=== PATIENT | male | born 1935 | race Caucasian/White ===

== ENCOUNTER 2017-05-12 16:39 | Inpatient (IN) | payer OTHER ==
[2017-05-12] MEDS: NORMAL SALINE 10 ML SYRINGE FLUSH IVP PRN ×2 (16:45→16:59)
[2017-05-12] MEDS ORDERED: FUROSEMIDE 10 MG/1 ML - 2 ML VIAL IVP ONE (16:48)
[2017-05-12 16:53] LABS: BASOPHILS # (AUTO) 0.07 10*3/UL; BASOPHILS % (AUTO) 0.9 % (0-1); EOSINOPHILS # (AUTO) 0.12 10*3/UL; EOSINOPHILS % (AUTO) 1.5 % (0-8); HEMATOCRIT 42.8 % (42.0-52.0); HEMOGLOBIN 14.8 g/dL (14.0-18.0); LYMPHOCYTES # (AUTO) 2.27 10*3/uL; MEAN CORPUSCULAR HEMOGLOBIN 30.2 PG (27-31); MEAN CORPUSCULAR HGB CONC 34.6 g/dL (33-37); MEAN CORPUSCULAR VOLUME 87.3 FL (80-90); MEAN PLATELET VOLUME 8.9 FL (7.4-12.2); MONOCYTES # (AUTO) 1.08 10*3/UL (0.3-0.8); MONOCYTES % (AUTO) 13.3 % (5-15); NEUTROPHILS # (AUTO) 4.41 10*3/UL; NEUTROPHILS % (AUTO) 53.9 % (50-80)
--- NOTE | 2017-05-12 16:57 | EKG ---
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
[2017-05-12 17:00] LABS: PLATELET MORPHOLOGY COMMENT NORMAL MORPHOLOGY (NORM); RBC MORPHOLOGY COMMENT NORMAL MORPHOLOGY (NORM); WBC MORPHOLOGY COMMENT NORMAL MORPHOLOGY (NORM)
[2017-05-12 17:05] LABS: BLOOD UREA NITROGEN 58 mg/dL (7-22); BUN/CREATININE RATIO 27.61 (6-20); CALCIUM 9.1 mg/dL (8.7-10.7); MAGNESIUM 2.1 mg/dL (1.6-2.4); SERUM ALBUMIN 3.7 g/dL (3.5-4.8)
[2017-05-12 17:14] LABS: C-REACTIVE PROTEIN < 0.5 mg/dL (0.0-0.9)
--- NOTE | 2017-05-12 18:24 | PDOC ---
History and Physical - History of Present Illness Date and Time of Service: 05/12/2017 Chief Complaint: Leg swelling and penile swelling of 2 weeks duration some shortness of breath on and off for a few weeks. History of Present Illness: This is a 82 years old male with medical history significant for history of coronary artery disease with previous 5 vessel bypass in 1998, hypertension, and admission in October 2015 for congestive heart failure with preserved ejection fraction who came into the hospital with history of leg and penile swelling which is being going on for about 2 months with on and off shortness of breath but no chest pain. He said the symptoms started about 2 months ago when he had joint pain and swelling in hands elbows and was admitted to [facility] it sounded like they drained the elbow, put him on some new medications looks like allopurinol and they took him off his Lasix. He did say that it was discovered that his kidney function was not normal and that he had a kidney biopsy with field checker in [place] and they told him things are borderline. About 10 days ago because of the swelling his called the field checker he suggested restarting the Lasix however she did not do that until Saturday when he took 40 mg dosage and he took another dosage yesterday and today since there was no change in his weight he took 40 twice a day. He was also taking prednisone it sounded like tapering dosage for his gout and was discontinued last . Today he noticed the penile swelling and some shortness of breath and because of that he came into the ER. In the ER he was found to have significant edema in addition to penile edema and was admitted. He was giving Lasix and the thought that he had congestive heart failure. Currently he is denying shortness of breath, denying chest pain. he Said he can 't lie flat but this been going on since he had a heart surgery. Past Medical History Medical History: 1. Coronary artery disease with previous 5 vessel bypass in 1998. He did say he had an CO that year. 2. Hypertension. 3. Congestive heart failure previous admission to or hospital in Oct 2015 ejection fraction was 65%, suggesting congestive heart failure with preserved ejection fraction. 4. Gout. 5. Had renal biopsy about March 2017 for abnormal kidney function, patholgy unkown Surgical History: Five-vessel bypass in 1998 Family History: Reviewed an Not Pertinent Past Social History: Used to Smoke, rarerly drinks, no drugs, lives in [place]. Tobacco Use: Former Smoker Substance Use Type: None Alcohol Use: Rarely Medication / Allergies Home Medications: Home Medications Medication Instructions Recorded Confirmed Type Acetaminophen [Tylenol Arthritis] 650 mg PO DAILY 05/12/17 05/12/17 History Amlodipine Besylate [Norvasc] 10 mg PO DAILY 05/12/17 05/12/17 History RX: Allopurinol 100 mg PO BID 05/12/17 05/12/17 History RX: Carvedilol 3.125 mg PO DAILY 05/12/17 05/12/17 History RX: Furosemide [Lasix] 80 mg PO BID 05/12/17 05/12/17 History RX: Levothyroxine Sodium 150 mcg PO DAILY 05/12/17 05/12/17 History RX: Pravastatin Sodium 40 mg PO DAILY 05/12/17 05/12/17 History RX: Prednisone 20 mg PO DAILY 05/12/17 05/12/17 History Allergies/Adverse Reactions: Allergies Allergy/AdvReac Type Severity Reaction Status Date / Time No Known Allergies Allergy Verified 05/12/17 16:44 Review of Systems - Review of Systems All Systems: Reviewed & No Additional Complaints Except as Stated Exam - General General Appearance: POSITIVE: No Acute Distress, Cooperative, Obese - Head Head Exam: POSITIVE: Normal Inspection - Eye Eye Exam: POSITIVE: Normal Appearance - ENT ENT Exam: POSITIVE: Normal Exam - Neck Neck Exam: POSITIVE: Normal Inspection - Respiratory Respiratory Exam: POSITIVE: Clear to Auscultation - Bilaterally - Cardiovascular Cardiovascular Exam: POSITIVE: RRR - GI/Abdominal GI/Abdominal Exam: POSITIVE: Normal Bowel Sounds, Non Tender, Non Distended, Soft, No Organomegaly - Rectal Rectal Exam: POSITIVE: Deferred - External Exam: POSITIVE: Deferred - Extremities Extremities Exam: POSITIVE: +3 Edema Additional Extremities Exam Details: 3+ edema up to the thighs. There is some penile edema noted also. - Back Back Exam: POSITIVE: Normal Inspection - Neurological Neurological Exam: POSITIVE: Alert, Oriented x 3, CN II-XII Intact, Moves All Extremities Equally - Psychiatric Psychiatric Exam: POSITIVE: Normal Affect - Integumentary Additional Integumentary Exam Details: there is a wound on the left ear, he had recent surgery. Results - Labs CBC and BMP: 05/12/17 16:50 05/12/17 16:50 - EKG Data -: EKG Interpreted by Me Rate: Normal EKG Shows Normal: Sinus Rhythm - EKG Data EKG Interpretation: Other (EKG showed sinus rhythm with first-degree AV block, right bundle branch block is Q waves in the inferior leads) - Imaging Status: Image Reviewed by Me (Chest x-ray showed the cardiomegaly with bilateral small pleural effusions, right larger than left.) Assessment and Plan - Patient Problems (1) Congestive cardiac failure Current Visit: No Status: Acute Comment: Last time he had an echo was October 2015 he had preserved ejection fraction. We'll recheck his echo tomorrow. The issue that we have now is whether the edema is secondary to congestive just heart failure or to renal failure. Prednisone also may contribute to the fluid retention plus he was off lasix for 2-3 weeks. He got Lasix already today I think we'll hold off on further Lasix will restart tomorrow will check his kidney function tomorrow. We 'll try to get records from [place] and see what's his last kidney function. If his kidney function tolerate we may consider Lasix drip. I did explain to him and to his family that its difficult situation as we may be limited with our abilty to diurse him if his kidney function get worse, if thats the case we need to speak with nephrolgy in [place] about options of treatment. (2) Chronic renal failure Current Visit: Yes Status: Acute Comment: Since he had a kidney biopsy he has abnormal kidney function but I don' t know what is his baseline will try to get records from his field checker and see where he stands and whats the pathology. (3) Hypertension Current Visit: No Status: Acute Comment: We'll increase the dosage of his Coreg to twice a day. We'll hold off on the amlodipine will use Lasix and Coreg, amlodipine may be also contributing to his edema. May add hydralazine if BP is uncontrolled (4) Elevated d-dimer Current Visit: Yes Status: Acute Comment: Unclear significance will put him on DVT prophylaxis we'll do also ultrasound of his legs although DVT seems to be unlikely. (5) Elevated troponin Current Visit: Yes Status: Acute Comment: This may be secondary to CHF and renal afilure he is denying chest pain and EKG is unchanged from before, will repeat it.
[2017-05-12] MEDS ORDERED: NORMAL SALINE 10 ML SYRINGE FLUSH IVP PRN (18:39)
[2017-05-12] MEDS ORDERED: LIDOCAINE W/ SODIUM BICARB 0.5 ML SYR SUBD PRN (18:39)
[2017-05-12] MEDS: CARVEDILOL 3.125 MG TABLET PO SCH (20:32)
[2017-05-12] MEDS: ALLOPURINOL 100 MG TABLET PO SCH (20:32)
[2017-05-12] MEDS: HEPARIN 5000 UNIT/1 ML SUBCUT SCH (20:32)
[2017-05-12] MEDS ORDERED: Pravastatin Tab 20 MG TAB PO SCH (21:00)
[2017-05-12] MEDS ORDERED: Petrolatum, White Jelly 5 APPLIC/5 GM PACKET TOPICAL PRN (22:27)
[2017-05-12 22:41] LABS: BILIRUBIN,URINE NEGATIVE (NEG); CLARITY,URINE CLEAR (CLEAR); COLOR,URINE YELLOW; GLUCOSE, URINE (UA) NEGATIVE (NEG); NITRATE,URINE NEGATIVE (NEG); OCCULT BLOOD,URINE Trace-lysed (NEG); PH,URINE 6.5 (5.0-8.5); PROTEIN,URINE >300 mg/dl (NEG)
[2017-05-12 23:22] LABS: BACTERIA,URINE RARE; URINE SAMPLE TYPE CLEAN CATCH URINE; WBC,URINE 0-1
--- NOTE | 2017-05-13 02:17 | PDOC ---
General Adult HPI - General Chief Complaint: Dyspnea Stated Complaint: SWELLING UP/ CAN'T BREATH Date Seen by Provider: 05/13/17 Time Seen by Provider: 16:57 Source: POSITIVE: Patient, Spouse Exam Limitations: POSITIVE: No limitations Nurse's Notes Reviewed & Considered: Yes - History of Present Illness Initial Comment: The patient is an 82-year-old male who presents to the emergency department with increased shortness of breath and swelling. He states that he has a history of coronary artery disease with previous bypass surgery in 1968. He also has had previous admissions to the hospital with congestive heart failure, the last time here was in 2016. He also reports that he was hospitalized for a gout flare at [facility] approximately a month ago. He states that last week he started to develop some increased swelling in his legs as well as an increased gout flare. He was seen at the [facility] and [place] on Saturday and started on Lasix in addition to his torsemide. He was also started on prednisone and allopurinol. He reports however that his swelling has continued to intensify. He has swelling of his legs all the way up into his upper legs. He also has swelling to his genitalia that started today. He has swelling even around his face and in his hands as well. He denies any complaints of chest pain. He does have increased shortness of breath and states that he cannot lay down flat. He denies fevers or chills, cough or congestion, chest pain or any other associated symptoms. He does report that he has had similar symptoms in the past. He also states that his kidney function has been an issue related to previous medications and he does see a weather teacher in [place]. Have you received a tetanus shot in the past 10 years?: Unknown - Patient Home Medications Home Medications: Home Medications Acetaminophen [Tylenol Arthritis] 650 mg PO DAILY 05/12/17 Allopurinol 100 mg PO BID 05/12/17 Amlodipine Besylate [Norvasc] 10 mg PO DAILY 05/12/17 Carvedilol 3.125 mg PO DAILY 05/12/17 Furosemide [Lasix] 80 mg PO BID 05/12/17 Levothyroxine Sodium 150 mcg PO DAILY 05/12/17 Pravastatin Sodium 40 mg PO DAILY 05/12/17 Prednisone 20 mg PO DAILY 05/12/17 - Patient Allergies Allergies/Adverse Reactions: Allergies Allergy/AdvReac Type Severity Reaction Status Date / Time No Known Allergies Allergy Verified 05/12/17 16:44 Past Medical History - heen HEENT History: Denies History Cardiovascular History: Hypertension, CAD Additional Cardiovasular History: Myocardial infarction in 1998 followed by 5 vessel coronary artery bypass graft Respiratory History: Shortness of Breath Gastrointestinal History: Denies History Genitourinary History: Denies History Endocrine History: Denies History Musculoskeletal History: Denies History Prosthesis or Implant: No Neurological History: Denies History Blood Disorders: Denies History Psychiatric History: Denies History History of Sexually Transmitted Diseases: No Cancer History: Denies History In Past Year Been Physically Harmed or Verbally Threatened: No History of MDRO: No History of Other Communicable Diseases: No History of Exposure to Communicable Disease: No Tobacco Use: Former Smoker Alcohol Use: None Substance Use Type: None Previous Surgical History: Yes Type / Date of Surgery: Coronary artery bypass surgery 1998; appendectomy; inguinal hernia repair Anesthesia Reactions: No Malignant Hyperthermia: No Significant Family History: No pertinent family hx Past Medical History Reviewed: Reviewed - No Changes ROS - Limitations ROS Limitations: No Limitations Constitution: DENIES: Chills, Fever Cardiovascular: REPORTS: Blood Pressure Problem (The patient does report that his blood pressure is typically high), Edema. DENIES: Chest Pain, Heart Palpitations Respiratory: REPORTS: Shortness Of Breath. DENIES: Cough Non Productive, Cough Productive Neurological: REPORTS: Denies Neuro Symptoms Gastrointestinal: REPORTS: Denies GI Symptoms Musculoskeletal: REPORTS: Lower Extremity Swelling Genitourinary: REPORTS: Denies Symptoms, Other (Genitalia are swollen today) . DENIES: Difficulty Urinating Eyes: REPORTS: Denies Symptoms ENT: REPORTS: Denies Symptoms Skin: DENIES: Rash General Adult Exam - General Appearance General Appearance: POSITIVE: Alert, Cooperative, No Acute Distress - HEENT HEENT: POSITIVE: Head Inspection Nml, Eyes Inspection Nml, Ears Inspection Nml, Pharynx Inspect. Nml - Neck Neck: POSITIVE: Normal Inspection. NEGATIVE: Lymphadenopathy - Respiratory Respiratory: POSITIVE: No Respiratory Distress, Other (Decreased breath sounds bilaterally) - Cardiovascular Cardiovascular: POSITIVE: Regular Rate & Rhythm, No Murmur Peripheral Pulses: Dorsalis-pedis (R): 2+, Dorsalis-pedis (L): 2+ - Abdomen Abdomen: Soft: (All Quadrants), Denies Tenderness: (All Quadrants), No Distention: (All Quadrants) - Skin Skin: POSITIVE: Normal Color, No Rash - Extremities Extremity: Normal ROM: (All Extremities) Additional Extremities Details: The patient does have marked edema in his lower extremities bilaterally, he also does have swelling to both hands, - Neurological / Psychological Neurological: POSITIVE: Oriented X3, Motor Normal, Sensation Normal, Other (No focal neurologic deficits) General Adult Progress - Results Reviewed by me Xrays/CTs/US Reviewed by me: Yes Radiology Findings: Chest x-ray shows cardiomegaly with right-sided pleural effusion Lab Results Reviewed: Yes Lab Results:: Laboratory Results 05/12/17 05/12/17 Range/Units 16:49 16:50 WBC 8.15 (4.8-10.8) 10^3/uL RBC 4.90 (4.70-6.10) 10^6/uL Hgb 14.8 (14.0-18.0) g/dL Hct 42.8 (42.0-52.0) % MCV 87.3 (80-90) FL MCH 30.2 (27-31) PG MCHC 34.6 (33-37) g/dL RDW Std Deviation 54.0 H (39-50) fL RDW Coeff of Claudio 17.4 H (11.5-14.5) % Plt Count 237 (140-350) 10*3/uL MPV 8.9 (7.4-12.2) FL Immature Gran % (Auto) 2.5 (0-5) % Neut % (Auto) 53.9 (50-80) % Lymph % (Auto) 27.9 (10-50) % [place] % (Auto) 13.3 (5-15) % Eos % (Auto) 1.5 (0-8) % Baso % (Auto) 0.9 (0-1) % Immature Gran # (Auto) 0.20 10*3/UL Neut # (Auto) 4.41 10*3/UL Lymph # (Auto) 2.27 10*3/uL [place] # (Auto) 1.08 H (0.3-0.8) 10*3/UL Eos # (Auto) 0.12 10*3/UL Baso # (Auto) 0.07 10*3/UL WBC Morphology Comment Normal morphology (NORM) Plt Morphology Comment Normal morphology (NORM) RBC Morph Comment Normal morphology (NORM) D-Dimer 1.61 H (0.00-0.59) mg/L Sodium 137 (135-145) meq/L Potassium 4.3 (3.8-5.2) meq/L Chloride 102 (98-112) meq/L Carbon Dioxide 24 (23-33) meq/L Anion Gap 11 (5-20) BUN 58 H (7-22) mg/dL Creatinine 2.1 H (0.70-1.50) mg/dL Estimated GFR [employer] BUN/Creatinine Ratio 27.61 H (6-20) Glucose 96 (78-110) mg/dL Calculated Osmolality 299.0 H (267-292) mOsm/kg Uric Acid 6.2 (3.8-8.5) mg/dl Calcium 9.1 (8.7-10.7) mg/dL Magnesium 2.1 (1.6-2.4) mg/dL Total Bilirubin 0.7 (0.3-1.2) mg/dL AST 27 (21-57) IU/L ALT 45 (21-72) IU/L Alkaline Phosphatase 101 (38-126) IU/L Troponin I 0.084 H (< 0.040) ng/mL C-Reactive Protein < 0.5 (0.0-0.9) mg/dL NT-Pro-B Natriuret Pep 4550 H (0-450) PG/ML Total Protein 6.8 (6.1-8.0) g/dL Albumin 3.7 (3.5-4.8) g/dL Globulin 3.1 (2.50-4.10) g/dL Albumin/Globulin Ratio 1.10 L (1.3-2.0) mg/g EKG Interpreted/Reviewed By Me:: Yes EKG Interpretation:: POSITIVE: Normal Sinus Rhythm, Normal Rate, Other (EKG shows right bundle branch block with PVCs, no acute ST segment or T-wave changes ) - Patient's Progress MDM / ED Course: The patient's oxygen saturation at rest remains above 90 however he is extremely symptomatic even with minimal activity in regard to increase shortness of breath. He also has marked edema on arrival. He has no complaints of chest pain. His initial EKG shows no acute changes. Chest x-ray shows cardiomegaly with previous surgical changes, right pleural effusion. Blood work reveals a markedly elevated BNP at 4500. His creatinine is 2.1 with a BUN of 54. These findings were discussed with the patient. I did recommend hospitalization and the patient is in agreement with this plan. The patient did receive Lasix 20 mg IV shortly after arrival here in the emergency department and he did have 200 mL of urine out here. - Consult Counseled: POSITIVE: Patient, Family, RE: Lab Results, RE: Radiology Results, RE : DX, RE: Need for F/U Patient Care Time - Estimated PCT Patient Care Time (In Minutes): 35 Vital Signs - Recent Vital Signs Vital Signs: Vital Signs (Last 8 hours) Temp Pulse Pulse Resp BP Pulse Ox 05/13/17 00:15 97.8 F 76 22 153/74 93 05/12/17 23:00 76 05/12/17 20:03 97.8 F 78 24 173/70 93 - VS Reviewed Vital Signs Reviewed: Yes Discharge Clinical Impression: Congestive cardiac failure, Hypertension, Pleural effusion due to congestive heart failure, Renal failure Discharge Disposition: Admit to Inpatient Condition: Fair Date Decision to Admit to Inpatient: 05/13/17 Time Decision to Admit to Inpatient: 18:30
[2017-05-13 05:19] LABS: HEMOGLOBIN A1C 6.82 % (4.2-6.0)
[2017-05-13 05:23] LABS: BLOOD UREA NITROGEN 57 mg/dL (7-22); CALCIUM 8.9 mg/dL (8.7-10.7)
[2017-05-13] MEDS ORDERED: LEVOTHYROXINE 75 MCG TABLET PO SCH (05:30)
[2017-05-13] MEDS ORDERED: FUROSEMIDE 10 MG/1 ML - 4 ML IVP SCH (07:00)
[2017-05-13] MEDS: ALLOPURINOL 100 MG TABLET PO SCH (09:34)
[2017-05-13] MEDS: HEPARIN 5000 UNIT/1 ML SUBCUT SCH (09:35)
[2017-05-13] MEDS: CARVEDILOL 3.125 MG TABLET PO SCH (09:37)
--- NOTE | 2017-05-13 11:38 | DCSUMMARY ---
Hospitalization Summary Hospital Course: Final Discharge Diagnosis: Current Visit Problems Problem Status Priority Diagnosed Code Chronic renal failure Acute N18.9 Congestive cardiac failure Acute I50.9 Elevated d-dimer Acute R79.89 Elevated troponin Acute R74.8 Hypertension Acute I10 Pleural effusion due to congestive heart failure Acute I50.9 Renal failure Acute N19 Diagnostic Data, Laboratory Data, and Procedures of Signifigance: Laboratory Results 05/12/17 05/12/17 05/12/17 Range/Units 16:49 16:50 22:20 WBC 8.15 (4.8-10.8) 10^3/uL RBC 4.90 (4.70-6.10) 10^6/uL Hgb 14.8 (14.0-18.0) g/dL Hct 42.8 (42.0-52.0) % MCV 87.3 (80-90) FL MCH 30.2 (27-31) PG MCHC 34.6 (33-37) g/dL RDW Std Deviation 54.0 H (39-50) fL RDW Coeff of Claudio 17.4 H (11.5-14.5) % Plt Count 237 (140-350) 10*3/uL MPV 8.9 (7.4-12.2) FL Immature Gran % (Auto) 2.5 (0-5) % Neut % (Auto) 53.9 (50-80) % Lymph % (Auto) 27.9 (10-50) % Stewart % (Auto) 13.3 (5-15) % Eos % (Auto) 1.5 (0-8) % Baso % (Auto) 0.9 (0-1) % Immature Gran # (Auto) 0.20 10*3/UL Neut # (Auto) 4.41 10*3/UL Lymph # (Auto) 2.27 10*3/uL Stewart # (Auto) 1.08 H (0.3-0.8) 10*3/UL Eos # (Auto) 0.12 10*3/UL Baso # (Auto) 0.07 10*3/UL WBC Morphology Comment Normal morphology (NORM) Plt Morphology Comment Normal morphology (NORM) RBC Morph Comment Normal morphology (NORM) D-Dimer 1.61 H (0.00-0.59) mg/L Sodium 137 (135-145) meq/L Potassium 4.3 (3.8-5.2) meq/L Chloride 102 (98-112) meq/L Carbon Dioxide 24 (23-33) meq/L Anion Gap 11 (5-20) BUN 58 H (7-22) mg/dL Creatinine 2.1 H (0.70-1.50) mg/dL Estimated GFR Cop Breaker BUN/Creatinine Ratio 27.61 H (6-20) Glucose 96 (78-110) mg/dL Mean Blood Glucose mg/dL Hemoglobin A1c (4.2-6.0) % Calculated Osmolality 299.0 H (267-292) mOsm/kg Uric Acid 6.2 (3.8-8.5) mg/dl Calcium 9.1 (8.7-10.7) mg/dL Magnesium 2.1 (1.6-2.4) mg/dL Total Bilirubin 0.7 (0.3-1.2) mg/dL AST 27 (21-57) IU/L ALT 45 (21-72) IU/L Alkaline Phosphatase 101 (38-126) IU/L Troponin I 0.084 H (< 0.040) ng/mL C-Reactive Protein < 0.5 (0.0-0.9) mg/dL NT-Pro-B Natriuret Pep 4550 H (0-450) PG/ML Total Protein 6.8 (6.1-8.0) g/dL Albumin 3.7 (3.5-4.8) g/dL Globulin 3.1 (2.50-4.10) g/dL Albumin/Globulin Ratio 1.10 L (1.3-2.0) mg/g Ur Collection Type Clean catch urine Urine Color Yellow Urine Clarity Clear (CLEAR) Urine pH 6.5 (5.0-8.5) Ur Specific [place] 1.020 (1.005-1.030) Urine Protein >300 (NEG) mg/dl Urine Glucose (UA) Negative (NEG) mg/dL Urine Ketones Negative (NEG) Urine Occult Blood Trace-lysed H (NEG) Urine Nitrate Negative (NEG) Urine Bilirubin Negative (NEG) Urine Urobilinogen 1.0 (0.2) EU/dL Ur Leukocyte Esterase Negative (NEG) Urine RBC 1-3 (NONE) /hpf Urine WBC 0-1 (NONE) Ur Squamous Epith Cells None (NONE) Ur Renal Epithelial Cell None (NONE) Urine Crystals None Urine Bacteria Rare (NONE) Urine Casts None (NONE) Urine Mucus Few (NONE) Urine Trichomonas None (NONE) Urine Yeast None (NONE) Ur Culture Indicated? Culture not set 05/13/17 Range/Units 04:15 WBC (4.8-10.8) 10^3/uL RBC (4.70-6.10) 10^6/uL Hgb (14.0-18.0) g/dL Hct (42.0-52.0) % MCV (80-90) FL MCH (27-31) PG MCHC (33-37) g/dL RDW Std Deviation (39-50) fL RDW Coeff of Claudio (11.5-14.5) % Plt Count (140-350) 10*3/uL MPV (7.4-12.2) FL Immature Gran % (Auto) (0-5) % Neut % (Auto) (50-80) % Lymph % (Auto) (10-50) % Stewart % (Auto) (5-15) % Eos % (Auto) (0-8) % Baso % (Auto) (0-1) % Immature Gran # (Auto) 10*3/UL Neut # (Auto) 10*3/UL Lymph # (Auto) 10*3/uL Stewart # (Auto) (0.3-0.8) 10*3/UL Eos # (Auto) 10*3/UL Baso # (Auto) 10*3/UL WBC Morphology Comment (NORM) Plt Morphology Comment (NORM) RBC Morph Comment (NORM) D-Dimer (0.00-0.59) mg/L Sodium 139 (135-145) meq/L Potassium 3.8 (3.8-5.2) meq/L Chloride 103 (98-112) meq/L Carbon Dioxide 25 (23-33) meq/L Anion Gap 11 (5-20) BUN 57 H (7-22) mg/dL Creatinine 2.0 H (0.70-1.50) mg/dL Estimated GFR Cop Breaker BUN/Creatinine Ratio 28.50 H (6-20) Glucose 109 (78-110) mg/dL Mean Blood Glucose 141.106 mg/dL Hemoglobin A1c 6.82 H (4.2-6.0) % Calculated Osmolality 304.0 H (267-292) mOsm/kg Uric Acid (3.8-8.5) mg/dl Calcium 8.9 (8.7-10.7) mg/dL Magnesium (1.6-2.4) mg/dL Total Bilirubin (0.3-1.2) mg/dL AST (21-57) IU/L ALT (21-72) IU/L Alkaline Phosphatase (38-126) IU/L Troponin I 0.085 H (< 0.040) ng/mL C-Reactive Protein (0.0-0.9) mg/dL NT-Pro-B Natriuret Pep 3400 H (0-450) PG/ML Total Protein (6.1-8.0) g/dL Albumin (3.5-4.8) g/dL Globulin (2.50-4.10) g/dL Albumin/Globulin Ratio (1.3-2.0) mg/g Ur Collection Type Urine Color Urine Clarity (CLEAR) Urine pH (5.0-8.5) Ur Specific [place] (1.005-1.030) Urine Protein (NEG) mg/dl Urine Glucose (UA) (NEG) mg/dL Urine Ketones (NEG) Urine Occult Blood (NEG) Urine Nitrate (NEG) Urine Bilirubin (NEG) Urine Urobilinogen (0.2) EU/dL Ur Leukocyte Esterase (NEG) Urine RBC (NONE) /hpf Urine WBC (NONE) Ur Squamous Epith Cells (NONE) Ur Renal Epithelial Cell (NONE) Urine Crystals Urine Bacteria (NONE) Urine Casts (NONE) Urine Mucus (NONE) Urine Trichomonas (NONE) Urine Yeast (NONE) Ur Culture Indicated? History and Physical pertinent to Admission: Past Medical History Medical History: 1. Coronary artery disease with previous 5 vessel bypass in 1998. He did say he had an MO that year. 2. Hypertension. 3. Congestive heart failure previous admission to or hospital in Oct 2015 ejection fraction was 65%, suggesting congestive heart failure with preserved ejection fraction. 4. Gout. 5. Had renal biopsy about March 2017 for abnormal kidney function, patholgy unkown Surgical History: Five-vessel bypass in 1998 Family History: Reviewed an Not Pertinent Past Social History: Used to Smoke, rarerly drinks, no drugs, lives in [place]. Tobacco Use: Former Smoker Substance Use Type: None Alcohol Use: Rarely Course of Hospitalization: This very nice 82-year-old gentleman with past medical history significant for congestive heart failure, bypass 5 in 1998, acute on chronic renal failure, elevated BNP on this admission and positive troponins comes in for the last 2 weeks of increased shortness of breath unable to lay flat and scrotum and lower extremity edema. He was admitted overnight was given the Lasix IV with not much diuresis. I called the well and cardiopulmonary's office to find out about his history and request some records he was seen by Karolina Lemos and on April 08 and she recommended he be admitted but the patient refused at that time. I did talk to the patient extensively and I told him all that was going on with him his congestive heart failure most likely, is anasarca, and his renal failure and he needed to see cardiology and nephrology and be most likely transferred to [facility]. The patient did agree I contacted Dr. Michael Mata which accepted the patient and he was very helpful in this case. Patient is chest pain-free at present time his EKG shows a right bundle branch block first-degree A-V block and will be transferred to [facility] for further evaluation in regards to his heart and acute on chronic renal failure. N positive troponins. The case was discussed with patient Dr. Mata and nursing . On the date of discharge, the patient was examined: Gen.: No acute distress, alert, nontoxic Heart: Regular rate and rhythm, no murmurs, clicks, gallops, or rubs Lungs: Clear to auscultation bilaterally, breathing is nonlabored Abdomen/GI: Normal tones on auscultation, soft, nontender, nondistended Musculoskeletal/extremities: No clubbing, cyanosis, or edema Vitals reviewed and are listed below Assessment and Plan: 1. As per discharge assessments above 2. Disposition: Transferred to [facility] 3. Condition on discharge, stable and improved. 4. Diet: regular diet 5. Activities: resume normal activities 6. Follow-Up: 1. PCP 2. 7. Medications at the Time of Discharge: Home Medications Medication Instructions Recorded Confirmed Type Acetaminophen [Tylenol Arthritis] 650 mg PO DAILY 05/12/17 05/12/17 History Allopurinol 100 mg PO BID 05/12/17 05/12/17 History Amlodipine Besylate [Norvasc] 10 mg PO DAILY 05/12/17 05/12/17 History Carvedilol 3.125 mg PO DAILY 05/12/17 05/12/17 History Furosemide [Lasix] 80 mg PO BID 05/12/17 05/12/17 History Levothyroxine Sodium 150 mcg PO DAILY 05/12/17 05/12/17 History Pravastatin Sodium 40 mg PO DAILY 05/12/17 05/12/17 History Prednisone 20 mg PO DAILY 05/12/17 05/12/17 History 8. Time, care, counseling and coordination of care for this discharge is greater than 30 minutes. Exam - Vitals Vital Signs: Vital Signs Temperature 98 F Temperature Source Temporal Artery Scan Pulse Rate [Pulse Oximeter] 75 Pulse Rate 80 Respiratory Rate 18 Blood Pressure [Left Arm] 173/72 Pulse Ox 93 Oxygen Delivery Method Room Air Height 5 ft 7 in Weight 86.545 kg
[2017-05-13 11:48] VITALS: RESP 22; TEMP 98.6
--- NOTE | 2017-05-13 12:01 | DI ---
History: Edema Comparison: None Findings: Cardiac silhouette enlarged. The patient is status post coronary artery bypass graft. Pulmonary vasculature normal. No focal infiltrate. Small bilateral pleural effusions. Impression Cardiomegaly Status post coronary artery bypass graft Small bilateral pleural effusions.
== END 2017-05-13 12:47 | disposition short-term general hospital (02) | DRG 292 ==
LOC: ER 16:39 → MED/SURG 17:53
PROVIDERS: ADMIT Internal Medicine; ATTEND Internal Medicine
DX: I50.9 Heart failure, unspecified (principal); N17.8 Other acute kidney failure; J90 Pleural effusion, not elsewhere classified; N19 Unspecified kidney failure; N18.9 Chronic kidney disease, unspecified; R79.89 Other specified abnormal findings of blood chemistry; R74.8 Abnormal levels of other serum enzymes; I10 Essential (primary) hypertension
CPT/HCPCS: 71010; 80053; 83735; 83880; 84484; 84550; 85025; 85379; 86140; 93005; 93010; 96374; 99284 ×2; J1940; 36415; 80048; 81001; 81003; 83036; J1644